=== PATIENT | male | born 1935 | race Caucasian/White ===

== ENCOUNTER 2018-07-01 09:14 | Observation (INO) ==
[2018-07-01] MEDS ORDERED: fentaNYL Citrate Inj 100 MCG/2 ML Ampul ONE (09:46)
[2018-07-01] MEDS ORDERED: Famotidine PF Inj 20 MG/2 ML Vial ONE (09:46)
[2018-07-01] MEDS ORDERED: Metoprolol Tartrate 25 MG Tablet PO SCH (09:58)
[2018-07-01] MEDS ORDERED: Chlorhexidine Gluconate 2% 1 Pack (2 Cloths) TOPICAL SCH (09:58)
[2018-07-01] MEDS ORDERED: Sodium Chlor 0.9% Inj 500 ML IV.SIG SCH (10:00)
[2018-07-01 10:10] LABS: Baso # (Auto) 0.1 th/mm3 (0.0-0.2); Baso % (Auto) 0.7 % (0.0-2.0); Eos # (Auto) 0.2 th/mm3 (0.0-0.4); Hematocrit 47.5 % (39.0-51.0); Hemoglobin 15.8 gm/dL (13.0-17.0); Lymph # (Auto) 1.6 th/mm3 (1.0-4.8); Lymph % (Auto) 21.6 % (9.0-44.0); Mean Corpuscular HGB Conc 33.2 % (32.0-36.0); Mean Corpuscular Hemoglobin 30.1 pg (27.0-34.0); Mean Corpuscular Volume 90.8 fL (80.0-100.0); Mono # (Auto) 0.8 th/mm3 (0.0-0.9); Mono % (Auto) 11.2 % (0.0-8.0); Neut # (Auto) 4.7 th/mm3 (1.8-7.7); Neut % (Auto) 63.5 % (16.0-70.0); Platelet Count 224 th/mm3 (150-450); Red Blood Count 5.23 mil/mm3 (4.50-5.90); Red Cell Distribution Width 13.6 % (11.6-17.2); White Blood Count 7.4 th/mm3 (4.0-11.0)
[2018-07-01 10:20] LABS: INR 1.3 Ratio; Prothrombin Time 12.9 sec (9.8-11.6)
[2018-07-01] MEDS ORDERED: Esmolol Bolus Inj 100 MG/10 ML Vial IV.PUSH ONE (11:29)
[2018-07-01] MEDS ORDERED: Lidocaine PF 1% Inj 5 ML Syringe OTHER ONE (11:29)
[2018-07-01] MEDS ORDERED: Sugammadex Inj 200 MG/2 ML Vial IV.PUSH ONE (12:42)
--- NOTE | 2018-07-01 12:57 | P.OP ---
- Preoperative Diagnosis (1) History of bladder cancer (2) Bladder mass - Postoperative Diagnosis (1) Bladder mass (2) History of bladder cancer Date of procedure: 07/01/18 Procedure: Cystoscopy with transurethral resection of bladder tumor and transurethral resection of the prostate with posterior bladder wall biopsy with fulguration Anesthesia: MECHE Surgeon: Timmy Sutherland DO Estimated blood loss (mL): 25 Operation and Findings: 83-year-old male with history of bladder cancer status post cystoscopy in the office revealing a bladder tumor along the left side of the bladder wall and bladder neck region with erythema throughout the entire bladder. Decision made to bring the patient to the operating room and undergo cystoscopy transurethral resection of the bladder mass. Risk and benefits were discussed preoperatively he was willing to proceed. Patient brought to operating identified myself as Crow Anderson. He is placed in dorsal lithotomy position, prepped and you sterile fashion, received preprocedure antibiotics and general endotracheal tube anesthesia was administered. 22 [place] cystoscope was inserted the bladder and at the area of the bladder neck and proximal prostatic urethra tumor was noted to invade into this area was long the left side as well as in the 12 o'clock position. Erythema of the bladder was noted throughout. Cold cup biopsy of the posterior bladder wall was taken and sent to pathology urine was also sent for cytology. The 24 [place] sheath with the resectoscope was then placed into the bladder and resection began along the left side of the bladder wall and into the area of the prostatic urethra prostatic tissue was also resected at this time. Circumferentially the tumor extended into the 12: 00 and 11 o'clock position and this was also resected in the dome region. Once all the tumor was felt to be resected the rollerball was used to perform fulguration of the areas of bleeding within the prostatic urethra as well as around the bladder neck and left posterior bladder wall. Care was taken to avoid both ureteral orifices which were visualized completely throughout the entire case. Hemostasis was obtained and the chips were then sent to pathology. A 24 [place] three-way [place] catheter with 10 cc in the balloon was then placed into the bladder without difficulty and irrigated. The urine was clear at the completion of the procedure. The patient was awoken and extubated transferred recovery in stable condition.
[2018-07-01] MEDS ORDERED: Morphine Inj 4 MG/ML Vial IV.PUSH PRN (13:02)
[2018-07-01] MEDS ORDERED: *morphine SULFATE 4 MG/ML PERIprocedure ONLY ONE ×2 (13:15→13:24)
[2018-07-01] MEDS: Dextrose 5%/Lactated Ringer's 1,000 ML IV.CONT SCH (13:20)
[2018-07-01] MEDS ORDERED: HYDROmorphone PF Inj 1 MG/ML Ampul ONE (13:47)
--- NOTE | 2018-07-01 19:58 | ECG ---
Date Performed: 07/01/2018 Time Performed: 09:48:03 PTAGE: 83 years EKG: Sinus rhythm WITH OCCASIONAL SUPRAVENTRICULAR PREMATURE COMPLEXES LOW QRS VOLTAGE IN PRECORDIAL LEADS BORDERLINE ECG PREVIOUS TRACING : 10/24/2013 08.03 Since the previous tracing, no significant change noted DOCTOR: Robi [place] Interpretating Date/Time 07/01/2018 19:57:24
[2018-07-02] MEDS: Dextrose 5%/Lactated Ringer's 1,000 ML IV.CONT SCH (00:06)
[2018-07-02 07:55] VITALS: O2SAT 95
[2018-07-02] MEDS ORDERED: Citalopram 20 MG Tablet PO SCH (09:00)
[2018-07-02] MEDS ORDERED: amLODIPine 5 MG Tablet PO SCH (09:00)
[2018-07-02 09:24] VITALS: RESP 17
--- NOTE | 2018-07-02 09:46 | P.PNURO ---
Subjective Patient symptoms today: Pt seen and examined. Feeling wells. Objective Vital Signs: Vital Signs 07/01/18 09:58 07/01/18 12:57 07/01/18 13:00 Temperature 96.9 F L Pulse Rate 60 74 74 Respiratory Rate 16 14 14 Blood Pressure 150/92 H 136/77 158/84 H Pulse Oximetry 96 98 98 07/01/18 13:15 07/01/18 13:30 07/01/18 13:45 Temperature Pulse Rate 72 73 71 Respiratory Rate 16 13 19 Blood Pressure 150/80 H 133/71 133/61 Pulse Oximetry 95 98 95 07/01/18 14:00 07/01/18 14:15 07/01/18 14:45 Temperature Pulse Rate 69 69 67 Respiratory Rate 14 12 13 Blood Pressure 122/58 L 129/61 130/74 Pulse Oximetry 95 94 L 95 07/01/18 15:15 07/01/18 16:00 07/01/18 20:00 Temperature 97.7 F 97.3 F L 98.3 F Pulse Rate 67 62 62 Respiratory Rate 17 18 18 Blood Pressure 143/80 H 141/66 H 118/66 Pulse Oximetry 95 93 L 95 07/02/18 00:00 07/02/18 08:00 Temperature 98.2 F 98.2 F Pulse Rate 71 64 Respiratory Rate 18 17 Blood Pressure 142/67 H 139/58 L Pulse Oximetry 95 95 Intake & Output 07/01/18 07/02/18 07/02/18 18:59 06:59 18:59 Intake Total 1660 / 1660 1340 / 1340 Output Total 1276 / 1276 1550 / 1550 Balance 384 / 384 -210 / -210 Weight 105.5 kg 109.4 kg Intake: IV 200 / 200 1100 / 1100 D5W/LR Inj 1,000 ML @ 84 mls/hr 1000 / 1000 IV.CONT .[id number] ADRIAON Rx#: [id number] Ancef Inj 1,000 MG In NS Inj 200 / 200 100 / 100 100 ML @ 200 mls/hr IV.SIG Q8H ADRIANO Rx#:[id number] Oral 60 / 60 240 / 240 Anesthesia Amount 1400 / 1400 Output: Urine 475 / 475 Estimated Blood Loss 1 / 1 Urine Amount (Catheter) 800 / 800 1550 / 1550 3-way Urethral 800 / 800 1550 / 1550 Other: Bladder Irrigation Fluid - Amount Instilled 3-way Urethral 300 Weight On Admission 105.5 kg Result Diagrams: 07/01/18 09:45 Medications and IVs: Active Medications Generic Name Dose Route Start Last Admin Trade Name Freq PRN Reason Stop Dose Admin Hydrocodone Bitart/Acetaminophen 1 tab 07/01/18 13:00 [place] 10/325 PO Q4H PRN Acute Pain 1-5 Amlodipine Besylate 2.5 mg 07/02/18 09:00 07/02/18 09:17 Norvasc PO 2.5 mg DAILY ADRIANO Administration Chlorhexidine Gluconate 3 pack 07/01/18 09:58 07/01/18 09:10 Chlorhexidine 2% Cloth TOPICAL 07/04/18 09:57 3 pack [employer] ADRIANO Administration Citalopram Hydrobromide 20 mg 07/02/18 09:00 07/02/18 09:17 Celexa PO 20 mg DAILY ADRIANO Administration Lactated Ringer's 1,000 mls @ 30 mls/hr 07/01/18 10:00 07/01/18 09:50 Lr 1000 Ml Inj IV.SIG 07/04/18 09:59 30 mls/hr .Q24H ADRIANO Administration Sodium Chloride 500 mls @ 30 mls/hr 07/01/18 10:00 07/01/18 10:50 Ns Inj IV.SIG Not Given .Q10H ADRIANO Cefazolin Sodium 1,000 mg/ 100 mls @ 200 mls/hr 07/01/18 11:00 07/01/18 17:16 Sodium Chloride IV.SIG 07/04/18 10:59 Infused [employer] ADRIANO Infusion Dextrose/Lactated Ringer's 1,000 mls @ 84 mls/hr 07/01/18 13:06 07/02/18 00: 06 D5w/Lr Inj IV.CONT 84 mls/hr .[id number] ADRIANO Administration Levothyroxine Sodium 25 mcg 07/02/18 06:00 07/02/18 05:05 Synthroid PO 25 mcg DAILY@0600 ADRIANO Administration Metoprolol Tartrate 25 mg 07/01/18 09:58 07/01/18 10:52 Lopressor PO 07/04/18 09:57 Not Given [employer] ADRIANO Miscellaneous Information 1 each 07/01/18 14:08 Misc Nursing Information OTHER 07/02/18 14:08 UNSCH PRN SEE LABEL COMMENTS Morphine Sulfate 2 mg 07/01/18 13:02 Morphine Inj IV.PUSH Q4H PRN Acute Pain 6-10 Povidone Iodine 1 applicatio 07/01/18 09:58 07/01/18 09:50 Betadine 5% Antisepsis Kit EACH NARE 07/04/18 09:57 1 applicatio [employer] ADRIANO Administration Tamsulosin HCl 0.4 mg 07/02/18 09:00 07/02/18 09:17 Flomax PO 0.4 mg DAILY ADRIANO Administration Objective Remarks: Abd:soft,nt,nd [place]: urine clear Assessment and Plan - Plan Stable s/p TURBT D/C home today.
[2018-07-02 12:14] VITALS: BP 131/59; PULSE 58; TEMP 98
== END 2018-07-02 13:15 | disposition home or self-care (01) ==
LOC: HSDI 09:14 → HSDC 09:14 → N07 15:34
PROVIDERS: ADMIT Urology; ATTEND Urology